=== PATIENT | male | born 1960 | race Caucasian/White ===

== ENCOUNTER 2019-01-18 07:41 | Inpatient (IN) ==
[2019-01-18] MEDS ORDERED: MORPHINE IV ONE (08:06)
[2019-01-18] MEDS ORDERED: ZOFRAN IV ONE (08:06)
--- NOTE | 2019-01-18 08:15 | PROVIDER DOCUMENTATION ---
HPI-Abdominal Pain/GI Problem - General Chief Complaint: Abdominal Pain Stated Complaint: APPENDICITIS? Time Seen by Provider: 01/18/19 07:55 Source: patient Allergies/Adverse Reactions: Patient Allergies Allergy/AdvReac Type Severity Reaction Status Date / Time Penicillins AdvReac HIVES Verified 01/18/19 08:14 Home Medications: Home Medication List Medication Instructions Recorded Confirmed Last Taken Type Atorvastatin Calcium 40 mg PO QHS 01/18/19 01/18/19 01/17/19 History Omeprazole 40 mg PO DAILY 01/18/19 01/18/19 01/16/19 History - History of Present Illness-ABD Nature of Presenting Problems: leslie-umbilical pain started last pm, by this am, was RLQ. Cannot describe pain, other than is sharp when he moves. No fever, has had nausea. no change in BMPain much worse when hit bump in road Pain Radiation: reports: other (see above) Quality of Pain: reports: sharp Timing: reports: constant, getting worse Review of Systems - Adult - REVIEW OF SYSTEMS - ADULT Constitutional: reports: no symptoms reported Eyes: reports: no symptoms reported Ears, Nose, Mouth & Throat: reports: no symptoms reported Cardiovascular: reports: no symptoms reported Respiratory: reports: no symptoms reported Gastrointestinal: reports: see HPI Genitourinary: reports: no symptoms reported Musculoskeletal: reports: no symptoms reported Integumentary: reports: no symptoms reported Neurological: reports: no symptoms reported Psychiatric: reports: no symptoms reported Endocrine: reports: no symptoms reported Hematologic/Lymphatic: reports: no symptoms reported Allergic/Immunologic: reports: no symptoms reported Past History - Adult - PAST MEDICAL HISTORY-ADULT Review of Records: reports: Medications Reviewed Major Childhood Illnesses: reports: denies history Cardiovascular: reports: hyperlipidemia Respiratory: reports: denies history Gastrointestinal: reports: denies history Obstetrical/Gynecological: reports: denies history Genitourinary: reports: denies history Musculoskeletal: reports: denies history Neurological: reports: denies history Psychiatric: reports: denies history Endocrine/Immune: reports: denies history Physical Exam-General - PHYSICAL EXAM-ADULT Initial Vital Signs Reviewed: Yes - CONSTITUTIONAL General Appearance: appears well, alert, moderate distress - EYES Eyes: PERRL/EOMI, pink conjunctivae - HEAD, EARS, NOSE, MOUTH & THROAT HENMT: normocephalic/atraumatic, moist mucous membranes, normal ENT inspection, pharynx normal - NECK Neck: non-tender, full range of motion, supple - RESPIRATORY Respiratory: chest non-tender, lungs clear, normal breath sounds, no pleuratic chest pain, no respiratory distress, no accessory muscle use - CARDIOVASCULAR Cardiovascular: normal peripheral pulses, regular rate, rhythm, no gallop, no murmur - GASTROINTESTINAL (ABDOMEN) Abdominal Exam: abnormal bowel sounds (decreased.), tenderness (tender mod-sv in suprapubic, RLQ. Tmd in remainddr R abd, epigastrum. PAin worse with cough, percussion. 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, no motor/sensory deficits - PSYCHIATRIC Psych/Mental Status: normal mood/affect, normal thought content, normal thought process, oriented x 3 Progress - PLAN OF CARE/RESULTS Progress/Plan/Lab Results: Vital Signs - 8 hr 01/18/19 07:44 Temperature 97.9 F Pulse Rate 84 Respiratory Rate 24 Blood Pressure 118/73 O2 Sat by Pulse Oximetry 100 Orders Category Date Time Status Nursing- Obtain EKG ONCE Care 01/18/19 08:06 Ordered CHEST-1 VIEW [RAD] Stat Exams 01/18/19 08:[address] ABD/PELVIS W/IV CONT ONLY [CT] Urgent Exams 01/18/19 08:06 Ordered CBC WITH DIFF [HEME] Stat Lab 01/18/19 08:05 Uncollected COMPREHENSIVE METABOLIC PANEL [CHEM] Stat Lab 01/18/19 08:06 Uncollected PROTIME WITH INR [COAG] Stat Lab 01/18/19 08:06 Uncollected PTT [COAG] Stat Lab 01/18/19 08:06 Uncollected URINALYSIS W/POSS RFLX CULT [URINALYSIS] Stat Lab 01/18/19 08:06 Uncollected Morphine Med 01/18/19 08:06 Once 4 mg IV NOW ONE Ondansetron [Zofran] Med 01/18/19 08:06 Once 8 mg IV NOW ONE EKG [EKG] Stat Ther 01/18/19 08:06 Ordered Result Diagrams: 01/18/19 08:05 01/18/19 08:05 - EKG 1 Time of EKG reading by physician:: 08:18 EKG Read and Signed by:: Hayes Candelario EKG Interpretation (*Must complete 3 of following elements*): Normal Rate: 92 Rhythm: normal sinus rhythm [place]: normal QRS: normal CT Interval: normal ST Wave: normal Comments: normal ECG - CONSULTS/PCP/HOSPITALIST Notification #1 *Consult/PCP/Hospitalist*: Dr Nuñez Time Discussed: 12:07 Consult Disposition: Will see in ED, Admit - CHANGE OF SHIFT REPORT (ED Provider) 1 Report Given and Care Transferred to:: [facility] Time of Transfer: 08:30 Items Pending: Labs, CT/MRI Results Departure - Departure Date of Disposition Decision: 01/18/19 Time of Disposition Decision: 12:06 DIAGNOSIS: Acute appendicitis, UTI (urinary tract infection) Disposition: ADMITTED INPATIENT 09 Certified Medical Emergency: Emergent Condition: Fair Referrals and Follow-Ups: Tien Jaimes MD [Primary Care Provider] - - Critical Care Note This patient required my direct & personal management of CC.: No Attestation - Physician/ SAUL Attestation Patient care was provided by Advanced Practice Provider:: No The physician spent face to face time with patient:: Yes Advanced Practice Provider documentation review:: Supervising physician onsite and consulted in the evaluation and care of this patient. The physician did have a face to face encounter with the patient.
[2019-01-18 08:29] LABS: BASO# 0.02 X1000 (0.0-0.2); BASO% 0.2 % (0.0-0.8); EOS# 0.02 X1000 (0.0-0.7); EOS% 0.2 % (0.0-10.0); HEMATOCRIT 46.3 % (42.0-52.0); HEMOGLOBIN 15.8 g/dL (14.0-18.0); LYMPH# 0.91 X1000 (1.2-3.4); LYMPH% 11.2 % (20.5-51.1); MCH 31.8 PG (27-31); MCHC 34.1 g/dL (33-37); MCV 93.2 FL (81-99); MONO# 0.65 X1000 (0.11-0.59); MPV 9.6 FL (7.4-10.4); NEUT# 6.55 X1000 (1.4-6.5); NEUT% 80.4 % (42.2-75.2); PLT 197 X1000 (130-400); RBC 4.97 XMIL (4.7-6.1); RDW 12.7 % (11.5-14.5); WBC 8.15 X1000 (4.8-10.8)
[2019-01-18 08:45] LABS: INR 0.94; PROTIME 13.3 Seconds (11.0-16.0); PTT 25.3 Seconds (22.3-41.8)
[2019-01-18 09:00] LABS: AGAP 12; ALB/GLOB RATIO 1.6; ALBUMIN 4.3 g/dL (3.5-5.0); ALKALINE PHOSPHATASE 66 U/L (32-122); BUN 14 mg/dL (8-22); CALCIUM 9.4 mg/dL (8.8-10.2); CHLORIDE 98 mmol/L (98-107); COSMO 278; CREATININE 1.1 mg/dL (0.7-1.2); ESTIMATED GFR > 60; GLUCOSE 127 mg/dL (70-104); GOT 24 U/L (10-34); GPT 19 U/L (10-44); POTASSIUM 4.1 mmol/L (3.5-5.1); SODIUM 138 mmol/L (136-145); TCO2 28 mmol/L (25-35); TOTAL BILIRUBIN 1.05 mg/dL (0.20-1.00)
[2019-01-18 09:12] LABS: URINE SOURCE CLEAN CATCH
[2019-01-18 09:16] LABS: BILIRUBIN URINE NEGATIVE (NEGATIVE); BLOOD URINE NEGATIVE (NEGATIVE); COLOR YELLOW; GLUCOSE URINE NEGATIVE (NEGATIVE); KETONE URINE >150 mg/dL (NEGATIVE); LEUKOCYTES URINE LARGE (NEGATIVE); NITRITE URINE NEGATIVE (NEGATIVE); PH URINE 6.5; PROTEIN URINE 50 mg/dL (NEGATIVE); SP GRAVITY URINE 1.026; TURBIDITY URINE CLEAR (CLEAR); UR EPITHELIAL CELLS <10 /HPF (<10); URINE BACTERIA NEGATIVE /HPF; URINE RBC <10 /HPF (<10); URINE WBC 20-40 /HPF (<10); UROBILINOGEN URINE 3 mg/dL (NORMAL)
--- NOTE | 2019-01-18 09:21 | EKG Report ---
Test Performed on : 01/18/2019 08:18:16 AM Test Reason : pre-op Blood Pressure : / mmHG Vent. Rate : 092 BPM Atrial Rate : 092 BPM P-R Int : 134 ms QRS Dur : 090 ms QT Int : 364 ms P-R-T Axes : 037 -11 002 degrees QTc Int : 450 ms Normal sinus rhythm. Normal ECG No previous ECGs available Unconfirmed Result
--- NOTE | 2019-01-18 09:35 | Diag Imaging Result Doc PS360 ---
EXAM: CHEST-1 VIEW 01/18/2019 HISTORY: pre-op TECHNIQUE: AP portable at 0917 COMMENT: The inspiration is suboptimal. There is questionable bibasilar atelectasis. There are no previous studies. IMPRESSION: Minimal bibasilar atelectasis. Electronically signed by Arnaldo Martell 01/18/2019 9:33 AM
--- NOTE | 2019-01-18 11:34 | Diag Imaging Result Doc PS360 ---
EXAM: CT ABD/PELVIS W/IV CONT ONLY INDICATION: RLQ pain TECHNIQUE: This exam was performed using automated exposure control, adjustment of mA or kV according to patient size, and/or use of iterative reconstruction technique. COMPARISON: None. FINDINGS: There is subsegmental atelectasis and/or scarring at both lung bases. There has been a prior cholecystectomy. There are several small simple appearing hepatic cysts. The liver is essentially unremarkable, otherwise. The spleen is borderline prominent but unremarkable, otherwise. There is a small right renal cyst. The kidneys are unremarkable, otherwise. The adrenal glands appear normal. Urinary bladder is partially distended and exhibits a mildly thickened wall, probably related to trabecular thickening from an enlarged prostate and incomplete distention. There is prominent thickening of the appendix measuring up to 1.3 cm in diameter and there is periappendiceal inflammatory stranding consistent with acute appendicitis. There is a fair amount of nonloculated free fluid around the appendix. No well-defined abscess or free abdominal gas is identified to indicate perforation on the current study. There is mild to moderate uncomplicated diverticulosis coli. There is no obstructive bowel pattern. There is a very small hiatal hernia. The remainder of the GI tract is essentially unremarkable. IMPRESSION: 1.Acute appendicitis with no evidence of perforation on the current study. 2.Other incidental/nonacute findings detailed above. Electronically signed by Narinder Larose 01/18/2019 11:32 AM
[2019-01-18] MEDS ORDERED: DILAUDID IV ONE (11:58)
[2019-01-18] MEDS: LEVAQUIN 500 MG/D5W 500 MG/100 ML IVPB IV SCH (12:25)
[2019-01-18] MEDS ORDERED: LR 1,000 ML ONE (14:52)
[2019-01-18] MEDS ORDERED: SENSORCAINE-MPF 0.5%/EPI 1:200,000 ONE (14:52)
[2019-01-18] MEDS ORDERED: SODIUM CHLORIDE 0.9% 10 ML ONE (15:44)
[2019-01-18] MEDS ORDERED: NEO-SYNEPHRINE ONE (15:44)
[2019-01-18] MEDS ORDERED: ROBINUL ONE (15:49)
[2019-01-18] MEDS ORDERED: QUELICIN (DOSE) ONE (15:49)
[2019-01-18] MEDS ORDERED: EPHEDRINE ONE (15:49)
[2019-01-18] MEDS ORDERED: XYLOCAINE-MPF 2% ONE (15:49)
[2019-01-18] MEDS ORDERED: DECADRON ONE (15:49)
[2019-01-18] MEDS ORDERED: ZOFRAN ONE (15:49)
[2019-01-18] MEDS ORDERED: NEOSTIGMINE ONE (15:50)
[2019-01-18] MEDS ORDERED: DIPRIVAN 1% ONE (15:51)
[2019-01-18] MEDS ORDERED: FENTANYL ONE (15:53)
[2019-01-18 16:52] LABS: URINE SOURCE CATH
[2019-01-18] MEDS ORDERED: DILAUDID IV PRN (16:55)
[2019-01-18] MEDS ORDERED: D5 LR 1,000 ML IV SCH (17:00)
[2019-01-18] MEDS ORDERED: D5 LR 1,000 ML ONE (17:11)
--- NOTE | 2019-01-18 17:15 | HISTORY AND PHYSICAL ---
CHIEF COMPLAINT: Abdominal pain. HISTORY OF PRESENT ILLNESS: This is a 58-year-old male who presented with acute onset of periumbilical pain last night which then migrated to the right lower quadrant. It is constant in nature, worsened with movement, coughing, laughing, or deep breaths, and lessened with lying still. It is associated with nausea and multiple chills. PAST MEDICAL HISTORY: Hypercholesterolemia, Walker's esophagus. PAST SURGICAL HISTORY: Laparoscopic cholecystectomy, knee surgery. HOME MEDICATIONS: Prilosec and statin. FAMILY HISTORY: His father in his 40s of heart disease. SOCIAL HISTORY: He drinks alcohol occasionally, as well as cigars. No cigarettes and he denies illicit drug use. REVIEW OF SYSTEMS: Ten systems reviewed and negative except as noted above. PHYSICAL EXAMINATION: VITAL SIGNS: Temperature 99.6 degrees, pulse 100, respirations 16, blood pressure 117/72. GENERAL: Well-developed, well-nourished male in no distress, who looks his stated age. HEENT: Normocephalic, atraumatic. Extraocular muscles intact. Pupils equal, round, reactive to light. Sclerae anicteric. Moist mucous membranes. Hearing grossly normal. No oral lesions. NECK: Supple. No thyromegaly. CV: Regular rate and rhythm. RESPIRATORY: Bilateral breath sounds. No work of breathing. GASTROINTESTINAL: Soft, nondistended. No organomegaly or mass. No hernias. He was focally tender in the right lower quadrant without rebound or guarding. EXTREMITIES: No clubbing, cyanosis, or edema. SKIN: Warm and dry. No rash. MUSCULOSKELETAL: Moves all extremities equally and well. LABORATORY: His CBC and metabolic profile reviewed and unremarkable. IMAGING: The CT of abdomen and pelvis shows an inflamed appendix with some periappendiceal free fluid. ASSESSMENT AND PLAN: This is a 58-year-old male with acute appendicitis. We are planning laparoscopic appendectomy. I discussed the risks, benefits, alternatives with him including bleeding, infection, injury to surrounding organs such as the intestines or ureters, incisional hernia, and other imponderables. He understands and agrees to proceed. cc: Vernon Nuñez MD
[2019-01-18 17:16] LABS: UR EPITHELIAL CELLS <10 /HPF (<10); URINE BACTERIA NEGATIVE /HPF; URINE RBC TNTC /HPF (<10)
[2019-01-18 17:17] LABS: BILIRUBIN URINE NEGATIVE (NEGATIVE); BLOOD URINE LARGE (NEGATIVE); COLOR ORANGE; GLUCOSE URINE NEGATIVE (NEGATIVE); KETONE URINE 80 mg/dL (NEGATIVE); LEUKOCYTES URINE NEGATIVE (NEGATIVE); NITRITE URINE NEGATIVE (NEGATIVE); PH URINE 6.5; PROTEIN URINE 30 mg/dL (NEGATIVE); TURBIDITY URINE CLEAR (CLEAR); UROBILINOGEN URINE 2 mg/dL (NORMAL)
--- NOTE | 2019-01-18 17:59 | OPERATIVE NOTE ---
PROCEDURE DATE: 01/18/2019 PREOPERATIVE DIAGNOSIS: Acute appendicitis. POSTOP DIAGNOSIS: Ruptured appendicitis. PROCEDURE: Laparoscopic appendectomy with drainage of intraabdominal abscess. SURGEON: Dr. Vernon Nuñez. 1ST TELEMETRY RN: Tayo Gurrola. 2ND TELEMETRY RN: Mckenzie Gasca, MS 4. ANESTHESIA: General. ESTIMATED BLOOD LOSS: 10 mL. COMPLICATIONS: None apparent. SPECIMENS: Appendix. FINDINGS: There was pus in the pelvis and right lower quadrant and an area of perforation in the midportion of the appendix. DRAINS: One #19 Colten. TECHNIQUE: The patient was brought to the operating room and placed supine on the table. General anesthesia was induced. A Escalante catheter was placed. He was prepped and draped in usual sterile fashion. 0.25% Marcaine with epinephrine was used to anesthetize our incisions. A 12 mm incision was made below the umbilicus. The fascia was exposed and incised sharply. Entry into the peritoneal cavity was obtained under direct vision with the Optiview device. Pneumoperitoneum was established. The camera was inserted. There was no evidence of injury to underlying structures. Two 5 mm incision ports were placed under direct vision, one in the left lower quadrant and one in the suprapubic midline. We then rotated the patient to his left and placed him in Trendelenburg. The appendix was found in a retrocecal position hiding also behind the terminal ileum in a pool of purulent fluid. We suctioned this out and took a culture. I then was able to bluntly mobilize the appendix up off the retroperitoneum and separate it from the terminal ileum with scissors. I dissected around the base of the appendix and through the appendiceal mesentery with a [place] forceps until a good window was created. The base was then transected with an Endo-MARK stapler. The base appeared to be viable and not necrotic. I then transected the appendiceal mesentery with another firing of the Endo-MARK stapler. The appendix was placed in an EndoCatch bag. I inspected the staple lines. There was 1 area of bleeding which was easily controlled with cautery. I then irrigated thoroughly in the right lower quadrant, pericolic gutter and pelvis and suctioned out all the old blood, purulent fluid and irrigation until clear. I did place a 19 Colten drain through a new right lower quadrant 5 mm incision and positioned the drain alongside the staple lines and pelvic brim where the appendix had been lying against the retroperitoneum. The drain was sewn to the skin with 3-0 nylon. I then bobby the appendix and bag up out of the abdomen through the umbilical port site. We desufflated the abdomen, removed the ports. The umbilical fascia was closed with a [id number] 0 Vicryl. The skin was closed with 4-0 subcuticular Monocryl and Steri-Strips. There were no apparent complications. He was awakened in stable condition and transferred to the recovery room. cc: Vernon Nuñez MD MTDD
[2019-01-18] MEDS: FLAGYL 500 MG/NS 500 MG/100 ML IVPB IV SCH (19:30)
[2019-01-18] MEDS: NORCO-10 PO PRN ×2 (19:31→23:06)
[2019-01-18] MEDS: LIPITOR PO SCH (22:06)
[2019-01-19] MEDS: FLAGYL 500 MG/NS 500 MG/100 ML IVPB IV SCH ×4 (02:03→20:59)
[2019-01-19 06:25] LABS: BASO# 0.01 X1000 (0.0-0.2); BASO% 0.1 % (0.0-0.8); EOS# 0.01 X1000 (0.0-0.7); EOS% 0.1 % (0.0-10.0); HEMATOCRIT 39.9 % (42.0-52.0); HEMOGLOBIN 13.3 g/dL (14.0-18.0); LYMPH# 0.79 X1000 (1.2-3.4); LYMPH% 6.9 % (20.5-51.1); MCH 32.4 PG (27-31); MCHC 33.3 g/dL (33-37); MCV 97.1 FL (81-99); MONO# 1.13 X1000 (0.11-0.59); MONO% 9.9 % (1.7-9.3); MPV 9.6 FL (7.4-10.4); NEUT# 9.46 X1000 (1.4-6.5); PLT 134 X1000 (130-400); RBC 4.11 XMIL (4.7-6.1)
[2019-01-19] MEDS: NORCO-10 PO PRN ×3 (07:00→20:19)
--- NOTE | 2019-01-19 09:04 | GENERAL SURGERY PROGRESS NOTE ---
DATE: 01/19/2019 SUBJECTIVE: The patient is feeling better overall. A little sore in his abdomen and some bloody draining around his LETI drain but otherwise doing good. He is tolerating a liquid diet and he has been able to stand up and urinate on his own. OBJECTIVE: Vital signs: He is afebrile. Vital signs are stable. General: He is awake, alert, oriented x3. No acute distress. Gastrointestinal: Soft, appropriately tender. Incisions are intact. The LETI drain has serosanguineous drainage. LABORATORY DATA: White blood cell count 86113, hemoglobin 13, hematocrit 39.9. MICROBIOLOGY: The cultures are pending. ASSESSMENT AND PLAN: A 58-year-old male, postoperative day 1 laparoscopic appendectomy and washout of intraabdominal abscess. This was for ruptured appendicitis. We will continue Levaquin and Flagyl and follow his culture results. I have encouraged ambulation today. I am going to Hep- Lock his IV and allow him to advance his diet as tolerated. cc: Vernon Nuñez MD
[2019-01-19] MEDS: PRILOSEC PO SCH (09:05)
[2019-01-19 13:33] LABS: SP GRAVITY URINE 1.015
[2019-01-19] MEDS: LEVAQUIN 500 MG/D5W 500 MG/100 ML IVPB IV SCH (14:02)
[2019-01-19] MEDS: LIPITOR PO SCH (20:59)
[2019-01-20] MEDS: NORCO-10 PO PRN ×3 (01:41→14:07)
[2019-01-20] MEDS: FLAGYL 500 MG/NS 500 MG/100 ML IVPB IV SCH ×4 (01:42→20:29)
--- NOTE | 2019-01-20 08:56 | GENERAL SURGERY PROGRESS NOTE ---
DATE: 01/20/2019 SUBJECTIVE: The patient is doing better. He tolerated clear liquids overnight. He has been up out of bed a few times. His pain is relatively well controlled. No significant nausea. No fever or chills. OBJECTIVE: He is afebrile. Vital signs are stable.General: He is awake, alert, oriented x3. No acute distress. CV: Regular rate and rhythm. Respiratory: No work of breathing. GI: Soft, appropriately tender. Incision is clean, dry, and intact. LETI drain with serosanguineous drainage. LABORATORY: None today. Microbiology results are pending for the abdominal fluid culture. ASSESSMENT/PLAN: A 58-year-old male postoperative day 2 laparoscopic appendectomy and drainage of intraabdominal abscess for ruptured appendicitis. He will remain on Levaquin and Flagyl. We await results of his cultures and are planning discharge in the next 24 hours. cc: Vernon Nuñez MD
[2019-01-20] MEDS: PRILOSEC PO SCH (09:22)
[2019-01-20] MEDS: LEVAQUIN 500 MG/D5W 500 MG/100 ML IVPB IV SCH (14:02)
[2019-01-20] MEDS: LIPITOR PO SCH (20:29)
[2019-01-21] MEDS: ZOFRAN IV PRN ×2 (00:20→13:14)
[2019-01-21] MEDS: FLAGYL 500 MG/NS 500 MG/100 ML IVPB IV SCH (02:50)
[2019-01-21] MEDS: PRILOSEC PO SCH (08:10)
[2019-01-21] MEDS: KEFLEX PO SCH ×2 (08:14→15:36)
--- NOTE | 2019-01-21 10:01 | GENERAL SURGERY PROGRESS NOTE ---
DATE: 01/21/2019 SUBJECTIVE: The patient reports an episode of having a shaking chill, nausea and vomiting around midnight last night. Since then, he has felt a little better. He denies severe pain. He has been able to eat some the last couple of days. His other main complaint is a lot of drainage around his LETI drain, soiling gauze bandages. OBJECTIVE: Vital Signs: He is afebrile. Vital signs are normal. He is voiding multiple times. His LETI drain was recorded as 475 mL out yesterday and it is serous in appearance. General: He is awake and alert, oriented x4. No acute distress. CV: Regular rate and rhythm. Respiratory: Bilateral breath sounds. No work of breathing. GI: Soft, nondistended. Appropriately tender. Incision is clean, dry, and intact. LABORATORY: None today. MICROBIOLOGY: Results show E coli in the abscess fluid. It is resistant to Levaquin, sensitive to Ancef. ASSESSMENT AND PLAN: A 58-year-old male postoperative day 3 laparoscopic appendectomy and drainage of intraabdominal abscess secondary to ruptured appendicitis. He is making steady improvement, although he did feel sick last night around midnight. We will observe him further today. If he has no further episodes like he did last night with fever, chills, nausea and vomiting, then we can discharge him home later today. I am monitoring the drain. If he continues to have significant drainage around it, then I may remove it prior to discharge. Home medications will include a prescription for Keflex and Flagyl for 5 days. I am going to go ahead and switch him to those now. cc: Vernon Nuñez MD
[2019-01-21] MEDS: FLAGYL PO SCH (15:37)
[2019-01-22] MEDS: FLAGYL PO SCH ×3 (00:27→11:46)
[2019-01-22] MEDS: KEFLEX PO SCH ×4 (00:28→11:46)
[2019-01-22] MEDS: LIPITOR PO SCH (00:28)
[2019-01-22 07:17] VITALS: BP 110/77
[2019-01-22] MEDS: PRILOSEC PO SCH (08:32)
[2019-01-22 10:30] LABS: BASO# 0.03 X1000 (0.0-0.2); BASO% 0.4 % (0.0-0.8); EOS# 0.19 X1000 (0.0-0.7); EOS% 2.4 % (0.0-10.0); HEMATOCRIT 46.4 % (42.0-52.0); HEMOGLOBIN 15.9 g/dL (14.0-18.0); IMM GRAN# 0.04 X1000 (0.0-0.04); IMM GRAN% 0.5 % (0.0-0.5); LYMPH# 0.92 X1000 (1.2-3.4); LYMPH% 11.5 % (20.5-51.1); MCH 31.5 PG (27-31); MCHC 34.3 g/dL (33-37); MCV 91.9 FL (81-99); MONO# 0.96 X1000 (0.11-0.59); NEUT# 5.84 X1000 (1.4-6.5); NEUT% 73.2 % (42.2-75.2); PLT 211 X1000 (130-400); RBC 5.05 XMIL (4.7-6.1); RDW 12.4 % (11.5-14.5); WBC 7.98 X1000 (4.8-10.8)
[2019-01-22 10:36] LABS: AGAP 8; BUN 15 mg/dL (8-22); CALCIUM 8.1 mg/dL (8.8-10.2); CHLORIDE 100 mmol/L (98-107); COSMO 275; CREATININE 0.9 mg/dL (0.7-1.2); ESTIMATED GFR > 60; GLUCOSE 112 mg/dL (70-104); POTASSIUM 3.7 mmol/L (3.5-5.1); SODIUM 137 mmol/L (136-145); TCO2 29 mmol/L (25-35)
--- NOTE | 2019-01-22 11:41 | DISCHARGE SUMMARY ---
ADMISSION DATE: 01/18/2019 DISCHARGE DATE: 01/22/2019 ADMITTING DIAGNOSIS: Perforated appendicitis. DISCHARGE DIAGNOSIS: Perforated appendicitis. PROCEDURE PERFORMED: Laparoscopic appendectomy with drainage of intra-abdominal abscess. HISTORY OF PRESENT ILLNESS: A 58-year-old gentleman presented with perforated appendicitis. Dr. Nuñez took him for an appendectomy on 01/18/2019. HOSPITAL COURSE: He was seen in the ER, and taken to the operating room for the above procedure. Postoperatively, he was continued on IV antibiotics. Dr. Nuñez removed his drain on the . He did have some nausea but this improved. He had bowel function. His incisions are intact. His abdomen is soft. His white count was normal. On day of discharge, he had no fevers and his renal function was normal. This was 24 hours after initiating oral antibiotic. He was felt safe for discharge. Follow up appointment with Dr. Nuñez this week for follow-up examination. His drain is already out. MEDICATIONS: I have given him a 10 day course of Keflex 4 times daily and Flagyl 3 times daily as well as [place], Colace, and Zofran. DISCHARGE INSTRUCTIONS: He was given both written and verbal instructions on postoperative care. His pathology showed acute appendicitis, but no malignancy. cc: MD Vernon Rose MD
== END 2019-01-22 12:49 | disposition home or self-care (01) | DRG 340 ==
LOC: 4N 07:41 → ED 07:41 → OBSVTOIN 16:52
PROVIDERS: ADMIT Surgery; ATTEND Surgery
CPT/HCPCS: 71010; 71045; 74177; 80048; 80053; 81001; 82948; 85025; 85610; 85730; 86850; 86900; 86901; 87070; 87075; 87077; 87088; 87186; 87205; 88304; 93005; 94761; 94799; 96365; 96366; 96375; 99285; A9270; J0330; J1100; J1170; J1956; J2270; J2370; J2405; J3010; J7120; J7121; Q9967; S0030; XXXXX